=== PATIENT | male | born 1940 | race Caucasian/White ===

== ENCOUNTER 2023-08-11 13:15 | Emergency (ER) | payer MEDICARE ==
[~2023-08-11] VITALS: Ht 172.7 cm; Wt 54.4 kg
[2023-08-11 14:33] LABS: Albumin, Blood 3.2 g/dL (3.4-5.0); Albumin/Globulin Ratio 0.8 (0.8-1.8); Bilirubin, Total 0.5 mg/dL (0.1-1.0); Bun/Creatinine Ratio 36.3 (12.0-20.0); Calcium, Blood 8.9 mg/dL (8.5-10.1); Creatinine, Blood 0.72 mg/dL (0.60-1.20); Potassium, Blood 4.1 mmol/L (3.5-5.5); Total Protein, Blood 7.2 g/dL (6.4-8.2)
[2023-08-11] MEDS ORDERED: CLOP75 PO (14:33)
[2023-08-11] MEDS ORDERED: Prozac20 MG PO (14:34)
[2023-08-11] MEDS ORDERED: ATOR20 (14:34)
[2023-08-11] MEDS ORDERED: Seroquel Xr50 MG PO (14:35)
[2023-08-11] MEDS ORDERED: ELIQUIS2.5 MG PO (14:35)
[2023-08-11] MEDS ORDERED: PANT40 (14:36)
[2023-08-11 14:45] LABS: BASOPHILS ABSOLUTE AUTO 0.07 K/mm3 (0.00-0.23); BASOPHILS PERCENT AUTO 1 % (0-2); EOSINOPHILS ABSOLUTE AUTO 0.11 K/mm3 (0.00-0.68); EOSINOPHILS PERCENT AUTO 1 % (0-6); Hematocrit 44.5 % (37.0-53.0); Hemoglobin 14.4 g/dL (13.5-17.5); IMMATURE GRAN ABSOLUTE AUTO 0.07 K/mm3 (0.00-0.10); IMMATURE GRAN PERCENT AUTO 1 % (0-1); LYMPHOCYTES ABSOLUTE AUTO 1.38 K/mm3 (0.84-5.20); LYMPHOCYTES PERCENT AUTO 12 % (21-46); MONOCYTES ABSOLUTE AUTO 0.77 K/mm3 (0.16-1.47); MONOCYTES PERCENT AUTO 7 % (4-13); Mean Corpuscular HGB 30.3 pg (26.0-34.0); Mean Corpuscular HGB Conc 32.4 g/dL (31.5-36.5); Mean Corpuscular Volume 94 fL (80-100); NEUTROPHILS ABSOLUTE AUTO 9.37 K/mm3 (1.96-9.15); NEUTROPHILS PERCENT AUTO 80 % (41-73); RDW Coefficient Variation 13.7 % (11.7-14.2); RDW Standard Deviation 47.2 fL (35.1-46.3); Red Blood Cell Count 4.75 M/mm3 (4.30-5.90); White Blood Cell Count 11.77 K/mm3 (4.00-11.30)
[2023-08-11 14:57] LABS: Source, Urine Clean Catch
[2023-08-11 15:01] LABS: Appearance, Urine Clear (Clear); Bilirubin, Urine Neg (Neg); Blood, Urine Neg (Neg); Color, Urine Amber (P-Yellow); Glucose Qualitative, Urine Neg (Neg); Ketones, Urine 1+ (Neg); Leukocyte Esterase, Urine 2+ (Neg); Nitrite, Urine Pos (Neg); Protein, Urine 2+ (Neg); Urobilinogen, Urine 2+ (Normal)
[2023-08-11 15:19] LABS: Bacteria Many /hpf; Hyaline Casts 0-2 /lpf (0-2); Squamous Epithelial Cells Rare /hpf (Few); Yeast/Fungi Urine Rare /hpf
[2023-08-11 15:29] LABS: Mean Platelet Volume 10.5 fL (9.1-12.4); Platelet Count 174 K/mm3 (150-400)
[2023-08-11 17:30] VITALS: BP 137/80
[2023-08-11] MEDS ORDERED: CEFU500T30 PO (17:33)
== END 2023-08-11 23:06 | disposition home or self-care (01) ==
LOC: ER 13:15
PROVIDERS: Emergency Medicine; Student in an Organized Health Care Education/Training Program
DX: N39.0 Urinary tract infection, site not specified (principal); E86.0 Dehydration; I69.954 Hemiplegia and hemiparesis following unspecified cerebrovascular disease affecting left non-dominant side
CPT/HCPCS: 70450; 80053; 81001; 82947; 85025; 87086; 93005; 93010; 96365; 99285-25; J0696